=== PATIENT | female | born 1940 | race Caucasian/White ===

== ENCOUNTER 2017-11-12 13:34 | Outpatient (CLI) | END 2017-11-12 13:35 | disposition short-term general hospital (02) | LOC: AMBL 13:34 | PROVIDERS: ATTEND Emergency Medicine | DX: R53.1 Weakness (principal); R47.89 Other speech disturbances; I48.91 Unspecified atrial fibrillation; R41.3 Other amnesia ==

== ENCOUNTER 2018-07-04 06:58 | Outpatient (CLI) | END 2018-07-04 06:59 | disposition home or self-care (01) | LOC: AMBL 06:58 | PROVIDERS: ATTEND Emergency Medicine | DX: I47.1 Supraventricular tachycardia (principal) ==

== ENCOUNTER 2018-07-14 07:49 | Outpatient (CLI) ==
--- NOTE | 2018-07-14 09:07 | DEXA ---
EXAM: Bone density HISTORY: Postmenopausal female with history of vitamin D supplementation COMPARISON: DEXA at 11/18/2009 TECHNIQUE: Digital images of the thoracolumbar spine and hips were provided and calculation of bone density was obtained. FINDINGS: Digital images demonstrate no compression deformities of the thoracolumbar spine. DEXA scan of the lumbar spine is of good quality. The total BMD equals 1.49 grams per square centimeter. (Prior 1.494. T-score is 2.4 and Z-score of 3.4. DEXA of the hips was performed and of good quality. Total bone marrow density of 0.883 grams per square centimeter. T score is - 1.0 and Z-score is 0.3 IMPRESSION: Bone density of the hip and lumbar spine demonstrate osteopenia of the hips by WHO crite benji. FRAX calculation tool demonstrates a 10-year probability of major osteoporotic fracture of 18.9% and hip fracture risk of 9.3%. T score greater than -1 is normal T score -1 to -2.5 is osteopenia T score less than - 2.5 is osteoporosis
== END 2018-07-14 07:50 | disposition home or self-care (01) ==
LOC: RAD 07:49
PROVIDERS: ATTEND Family Medicine
DX: Z12.31 Encounter for screening mammogram for malignant neoplasm of breast (principal); Z78.0 Asymptomatic menopausal state; Z13.820 Encounter for screening for osteoporosis
CPT/HCPCS: 77067